=== PATIENT | male | born 1945 | race Caucasian/White ===

== ENCOUNTER 2019-04-27 09:57 | Outpatient (CLI) | payer MEDICARE ==
--- NOTE | 2019-04-27 14:29 | NM ---
WHOLE BODY BONE SCAN: HISTORY: Malignant neoplasm of prostate. Recently diagnosed. Rising PSA levels. RADIOPHARMACEUTICAL: 33 mCi Technetium 99m-MDP injected intravenously. FINDINGS: There is focally increased uptake in the midline of the lower lumbar spine at L4-5 level most likely due to degenerative change. Mild increased uptake in the shoulders, knees, and ankles is also consistent with degenerative change s. No other abnormal areas of tracer localization are seen. Tracer excretion through the kidneys is within normal limits. IMPRESSION: 1. No definite evidence of osseous metastatic disease. 2. Correlation with plain radiographs is recommended to evaluate the finding in the lower lumbar spi ne. POS: [facility]
== END 2019-04-27 09:58 | disposition home or self-care (01) ==
LOC: NM 09:57
PROVIDERS: ATTEND Urology
DX: C61 Malignant neoplasm of prostate (principal)
CPT/HCPCS: 78306; A9503

== ENCOUNTER 2019-09-14 08:31 | Outpatient (CLI) | payer MEDICARE, OTHER ==
[2019-09-14] MEDS ORDERED: Iopamidol-370 76% 500 ML 1 ML ONE (08:50)
--- NOTE | 2019-09-14 12:04 | CT ---
CHEST CT WITH IV CONTRAST: Date: 09/14/2019 HISTORY: Follow-up pulmonary nodule. COMPARISON: Chest CT scan dated 01/07/2019. FINDINGS: Stable right lower lobe subpleural nodule at 0.5 cm. Stable left lower lobe poorly marginated 0.7 cm nodule. There are some increased linear markings in both bases, probably related to some subsegmental atelectasis and/or chronic change with some changes of dependent position. 0.4 x 1.0 cm nodule in th e right lobe of thyroid, stable. Stable left renal cyst, incompletely visualized. IMPRESSION: 1. Stable poorly circumscribed nodule in the left lower lobe. 2. Small, stable subpleural nodule in the right lower lobe. 3. Slightly more prominent bilateral linear parenchymal changes, evidence for some subsegmental atel ectasis and/or chronic change, as well as some prominent positional changes. 4. Stable small right lobe of thyroid nodule. 5. Other findings as above. POS: [facility]
== END 2019-09-14 08:32 | disposition home or self-care (01) ==
LOC: BICCT 08:31
PROVIDERS: ATTEND Radiology Radiation Oncology
DX: R91.8 Other nonspecific abnormal finding of lung field (principal); R91.1 Solitary pulmonary nodule; J98.4 Other disorders of lung; E04.1 Nontoxic single thyroid nodule; N28.1 Cyst of kidney, acquired
CPT/HCPCS: 71260; 82565; Q9967

== ENCOUNTER 2020-06-29 10:15 | Outpatient (CLI) | payer MEDICARE, OTHER ==
[2020-06-29] MEDS ORDERED: Iopamidol 370 76% 100 ML VIAL ONE (14:48)
== END 2020-06-29 10:16 | disposition home or self-care (01) ==
LOC: CT 10:15
PROVIDERS: ATTEND Radiology Radiation Oncology
DX: C49.11 Malignant neoplasm of connective and soft tissue of right upper limb, including shoulder (principal); N20.0 Calculus of kidney; N28.1 Cyst of kidney, acquired; R22.31 Localized swelling, mass and lump, right upper limb; Z98.890 Other specified postprocedural states
CPT/HCPCS: 71260; 82565; Q9967

== ENCOUNTER 2020-08-11 13:08 | Outpatient (CLI) | payer MEDICARE, OTHER | END 2020-08-11 13:09 | disposition home or self-care (01) | LOC: ULT 13:08 | PROVIDERS: ATTEND Internal Medicine Hematology & Oncology | DX: Z51.11 Encounter for antineoplastic chemotherapy (principal); C47.1 Malignant neoplasm of peripheral nerves of upper limb, including shoulder; I07.1 Rheumatic tricuspid insufficiency; Z79.899 Other long term (current) drug therapy | CPT/HCPCS: 93306 ==

== ENCOUNTER 2020-08-16 15:19 | Outpatient (CLI) | payer MEDICARE, BC ==
[2020-08-16 18:19] LABS: #Eosinphils 0.2 10x3/uL (0.0-0.5); #Monocytes 1.1 10x3/uL (0.0-1.1); %Basophils 0.5 % (0.0-2.0); %Eosinophils 2.3 % (0.0-6.0); %Lymphocytes 14.2 % (18.0-47.0); %Monocytes 12.5 % (0.0-10.0); %Neutrophils 69.9 % (40.0-75.0); Hemoglobin 12.6 g/dL (13.5-17.5); Mean Corpuscular HGB CONC 31.5 g/dL (32.0-36.0); Mean Corpuscular Hemoglobin 28.6 pg (27.0-33.0); Mean Corpuscular Volume 90.9 fl (81.2-95.1); Mean Platelet Volume 10.7 fl (7.4-10.4); Platelet Count 264 10x3/uL (150-450); RBC Distribution Width 13.3 % (11.5-14.5); White Blood Cell (WBC) Count 8.6 10x3/uL (3.5-10.5)
[2020-08-16 18:30] LABS: Anion Gap 16 mmol/L (10-20); BUN (Urea Nitrogen) 18 mg/dL (8.4-25.7); Calc. Creatinine Clearance 0 mL/min (70-130); Calcium 8.8 mg/dL (7.8-10.44); Carbon Dioxide 22 mmol/L (23-31); Chloride 106 mmol/L (98-107); Glucose 182 mg/dL (83-110); Potassium 4.4 mmol/L (3.5-5.1); Sodium 140 mmol/L (136-145)
[2020-08-17 01:00] LABS: SARS-CoV-2 PCR by NAA Not Detected (NotDetected)
== END 2020-08-16 15:20 | disposition home or self-care (01) ==
LOC: LABBT 15:19
PROVIDERS: ATTEND Surgery
DX: Z01.812 Encounter for preprocedural laboratory examination (principal); C47.9 Malignant neoplasm of peripheral nerves and autonomic nervous system, unspecified; Z20.822 Contact with and (suspected) exposure to COVID-19
CPT/HCPCS: 80048; 85025; U0003; U0005; 87635

== ENCOUNTER 2020-08-21 07:13 | Day surgery (SDC) | payer MEDICARE, OTHER ==
[2020-08-21] MEDS ORDERED: Insulin Regular 300 UNITS/3 ML VIAL ONE (08:22)
[2020-08-21] MEDS ORDERED: Bupivacaine 0.25% HCL 30 ML VIAL ONE (08:23)
[2020-08-21] MEDS ORDERED: Lidocaine 1% w/Epinephrine 1:100K 20 ML VIAL ONE (08:23)
[2020-08-21] MEDS ORDERED: Propofol 500 MG/50 ML VIAL ONE ×2 (08:29→08:30)
[2020-08-21] MEDS ORDERED: Fentanyl 100 MCG/2 ML VIAL ONE ×2 (08:29)
== END 2020-08-21 11:04 | disposition home or self-care (01) ==
LOC: SDC 07:13
PROVIDERS: ATTEND Surgery
PROC: 0JH60WZ Insertion of Totally Implantable Vascular Access Device into Chest Subcutaneous Tissue and Fascia, Open Approach (ICD-10-PCS; principal; 2020-08-21)
PROC: 02HV33Z Insertion of Infusion Device into Superior Vena Cava, Percutaneous Approach (ICD-10-PCS; 2020-08-21)
DX: C49.11 Malignant neoplasm of connective and soft tissue of right upper limb, including shoulder (principal); E78.00 Pure hypercholesterolemia, unspecified; I11.9 Hypertensive heart disease without heart failure; E11.9 Type 2 diabetes mellitus without complications; E78.5 Hyperlipidemia, unspecified; G47.30 Sleep apnea, unspecified; E03.9 Hypothyroidism, unspecified; M10.9 Gout, unspecified; H81.10 Benign paroxysmal vertigo, unspecified ear; Z86.73 Personal history of transient ischemic attack (TIA), and cerebral infarction without residual deficits; Z79.02 Long term (current) use of antithrombotics/antiplatelets; Z79.4 Long term (current) use of insulin; Z79.82 Long term (current) use of aspirin; Z79.899 Other long term (current) drug therapy; Z88.5 Allergy status to narcotic agent; Z95.1 Presence of aortocoronary bypass graft
CPT/HCPCS: 36561; 71045; 82962; C1788; 36416; J0690; J1642; J1815; J2704; J3010; S0020